=== PATIENT | male | born 1955 | race Caucasian/White ===

== ENCOUNTER 2022-05-16 09:42 | Emergency (ER) | payer MEDICARE, OTHER, SELFPAY ==
--- NOTE | ~2022-05-16 | XR_ITS ---
EXAMINATION: XR chest 2V DATE: 05/16/2022 10:46 INDICATION: Cough. COVID-19 positive. TECHNIQUE: Frontal and lateral views of the chest were obtained. COMPARISON: None. FINDINGS: There is no pneumonia, pleural effusion, or pneumothorax. The heart size is normal. There a re prominent paracardial fat pads. There is an old healed right rib fracture. IMPRESSION: 1. No acute cardiopulmonary disease. Reviewed, dictated and finalized at location A. [employer]
[2022-05-16 09:48] VITALS: BP 180/82; PULSE 77; RESP 16; TEMP 36.2; O2SAT 100
[2022-05-16 12:07] VITALS: BP 143/74; PULSE 71; TEMP 36.7; O2SAT 99
[2022-05-16] MEDS: IBUPROFEN 400 MG TABLET 800 MG PO (12:25)
[2022-05-16] MEDS: ACETAMINOPHEN 500 MG TABLET 1000 MG PO (12:26)
--- NOTE | 2022-05-16 12:45 | ECG_ITS ---
Measurements Intervals [place] Rate: 68 P: 67 CT: 161 QRS: -28 QRSD: 97 T: 38 QT: 409 QTc: 436 Interpretive Statements SINUS RHYTHM BORDERLINE R WAVE PROGRESSION, ANTERIOR LEADS BASELINE ARTIFACT- I, II, III, AVR, AVL, AVF, V3-V6 BORDERLINE ECG NO PREVIOUS ECG AVAILABLE FOR COMPARISON Electronically Signed On 05-16-2022 15:24:45 [employer] by Khris Dominguez D.O.
--- NOTE | 2022-05-16 12:45 | ED.GENADULT ---
HPI - General Adult General Chief complaint: Upper Respiratory Infection Stated complaint: SOB Time Seen by Provider: 05/16/22 11:45 History of Present Illness HPI narrative: this is a 66-year-old male presenting to ED with a chief complaint of viral illness. Patient started having symptoms on Tuesday. On to go home COVID test which was positive. He has been having some nausea and diarrhea and generalized fatigue. He also had an episode of palpitations when he woke this morning. After he had palpitations he checked his blood pressure is elevated which caused him significant anxiety. He tried to call his doctor's office but they were unavailable so he came to the emergency room for evaluation. Patient does not have shortness of breath, chest pain or lower extremity edema. He is vaccinated against COVID and flu. Denies sick contacts at home Related Data Allergies Allergy/AdvReac Type Severity Reaction Status Date / Time povidone-iodine AdvReac Rash Verified 05/16/22 12:26 [From Betadine] Review of Systems Review of Systems: All systems reviewed & are unremarkable except as noted in HPI and below PMFSH Past Medical History Medical History COPD (chronic obstructive pulmonary disease) CVA (cerebral vascular accident) Diabetes Hypertension Social History Social History Social History: denies smoking tobacco drugs Course Vital Signs Vital signs: Vital Signs Temperature 97.1 F L 05/16/22 09:48 Pulse Rate 77 05/16/22 09:48 Respiratory Rate 16 05/16/22 09:48 Blood Pressure 180/82 H 05/16/22 09:48 Pulse Oximetry 100 05/16/22 09:48 Temperature 98.0 F 05/16/22 12:07 Pulse Rate 71 05/16/22 12:07 Respiratory Rate 16 05/16/22 09:48 Blood Pressure 143/74 H 05/16/22 12:07 Pulse Oximetry 99 05/16/22 12:07 Medical Decision Making [facility] Narrative Medical decision making narrative: This is a 66-year-old male presenting ED with a viral illness. He is positive for COVID. Patient has stable vital signs and is well appearing. after speaking with the patient about his anxiety and elevated blood pressure he agrees that no significant workup is needed. Patient is likely dehydrated from his diarrhea. I offered to get lab work and give IV fluids with the patient declined. Patient given Motrin Tylenol for symptoms. Chest x-ray showed no acute cardiopulmonary process. EKG interpretation: Rhythm [sinus], Rate 68, [place] -[normal], SC -[normal], QRS [narrow], QTC [normal], T waves -[negative for concerning inversions], ST Segments - [Negative for concerning elevations] Final interpretations: [Normal Sinus Rhythm] I discussed patient's results. He is still feeling well. VSS. He will be discharged home to a recover on his own. He can follow up with his primary care physician. Vital Signs Vital Signs: Vital Signs Temperature 97.1 F L 05/16/22 09:48 Pulse Rate 77 05/16/22 09:48 Respiratory Rate 16 05/16/22 09:48 Blood Pressure 180/82 H 05/16/22 09:48 Pulse Oximetry 100 05/16/22 09:48 Temperature 98.0 F 05/16/22 12:07 Pulse Rate 71 05/16/22 12:07 Respiratory Rate 16 05/16/22 09:48 Blood Pressure 143/74 H 05/16/22 12:07 Pulse Oximetry 99 05/16/22 12:07 Discharge Plan Discharge Clinical Impression: COVID Patient Disposition: Home, Self-Care Condition: Stable Instructions: Antibiotic Form, Viral Syndrome (ED) Additional Instructions: you have COVID-19 infection. Please take Motrin and Tylenol for fever and body aches. Please make sure you are drinking plenty of fluids. Return emergency department if he develops chest pain or shortness of breath. Otherwise please follow-up with your primary care physician. You should self isolate for 5 days from symptom onset and until your symptom free. Follow-up/Referrals: [facility]
[2022-05-16 14:06] LABS: Glucose Point of Care 172 mg/dl (65-105)
[2022-05-16 14:33] VITALS: BP 144/86; PULSE 86; RESP 16; O2SAT 98
== END 2022-05-16 14:45 | disposition home or self-care (01) ==
LOC: ANHED 14:40
PROVIDERS: Emergency Provider Emergency Medicine
DX: U07.1 COVID-19 (principal); J44.9 Chronic obstructive pulmonary disease, unspecified; E11.9 Type 2 diabetes mellitus without complications; I10 Essential (primary) hypertension; Z86.73 Personal history of transient ischemic attack (TIA), and cerebral infarction without residual deficits; R94.31 Abnormal electrocardiogram [ECG] [EKG]
CPT/HCPCS: 71046; 82948; 93005; 99283; A9270

== ENCOUNTER 2022-11-12 11:50 | Emergency (ER) | payer MEDICARE, OTHER, SELFPAY ==
[2022-11-12 11:54] VITALS: BP 151/72; PULSE 82; RESP 22; TEMP 36.1; O2SAT 98
[2022-11-12 12:33] LABS: Appearance Urine Clear (Clear); Bacteria Urine None Seen /hpf; Bilirubin Urine Negative (Negative); Blood Urine Negative (Negative); Color Urine Yellow (Yellow); Glucose Urine UA 3+ mg/dL (Negative); Ketones Urine Negative (Negative); Leukocyte Esterase Ur Negative LEU/UL (Negative); Nitrate Urine Negative (Negative); Non Pathogenic Casts 0-2; Protein Urine Trace mg/dL (Negative); RBC Urine 0-2 /hpf (0-2); Specific Grav Ur 1.025 (1.001-1.035); Squamous Epithelial Cell Urine None seen /hpf (Few); WBC Urine 0-5 /hpf; pH Urine 5.5 (5.0-9.0)
[2022-11-12 12:38] LABS: Add Urine Microscopic? YES
--- NOTE | 2022-11-12 13:15 | ED.MALEGU ---
HPI - Male Genitourinary General Chief complaint: Urogenital-Male Stated complaint: decreased urine OP since Time Seen by Provider: 11/12/22 12:02 History of Present Illness HPI Narrative: Patient is a 67-year-old male presenting with difficulty urinating. Patient states that he has had prostate problems in the past. He follows with urology at [facility]. States that he has been doing well until the last several days when he noticed that it was more difficult for him to urinate. States that he is able to urinate, just requires a lot of pushing. States that he is concerned about a UTI as he had one in 2019 and developed sepsis. He denies fevers, chest pain, shortness of breath, abdominal pain, vomiting, diarrhea, dysuria, hematuria, leg swelling. Related Data Allergies Allergy/AdvReac Type Severity Reaction Status Date / Time povidone-iodine AdvReac Rash Verified 11/12/22 12:21 [From Betadine] Review of Systems Review of Systems: All systems reviewed & are unremarkable except as noted in HPI and below PMFSH Past Medical History Medical History COPD (chronic obstructive pulmonary disease) CVA (cerebral vascular accident) Diabetes Hypertension Social History Social History Social History: denies smoking tobacco drugs Exam Narrative: GENERAL: Well-appearing, well-nourished, and in no acute distress. HEAD: Normocephalic, atraumatic. EYES: PERRLA and EOMI. ENT: Nares clear, no rhinorrhea or epistaxis. Mucous membranes moist. NECK: Supple. CHEST: No respiratory distress. HEART: Regular rate and rhythm ABDOMEN: Soft, nontender, nondistended EXTREMITIES: Normal range of motion. No edema. SKIN: Warm, dry, no rash. NEURO: No focal deficits. Alert and oriented x3. PSYCH: Normal mood and affect. Course Vital Signs Vital signs: Vital Signs Temperature 97.0 F L 11/12/22 11:54 Pulse Rate 82 11/12/22 11:54 Respiratory Rate 22 H 11/12/22 11:54 Blood Pressure 151/72 H 11/12/22 11:54 Pulse Oximetry 98 11/12/22 11:54 Oxygen Delivery Room Air 11/12/22 11:54 Temperature 97.0 F L 11/12/22 11:54 Pulse Rate 82 11/12/22 11:54 Respiratory Rate 22 H 11/12/22 11:54 Blood Pressure 151/72 H 11/12/22 11:54 Pulse Oximetry 98 11/12/22 11:54 Oxygen Delivery Room Air 11/12/22 11:54 MDM - Male Genitourinary MDM Narrative Medical decision making narrative: Patient is a 67-year-old male presenting with urinary difficulties. Patient is hypertensive, his vitals are within normal limits. Exam is unremarkable. UA is not infected. Plan for basic labs and likely discharge. Patient states that he is already left a message for his urologist. Blood work with mild leukocytosis. Renal function is normal. Bladder scan reveals minimal postvoid residual of about 25 cc. Discussed the reassuring work-up with the patient. Advised that he follow-up closely with his urologist as well as his PCP. Appropriate return precautions given. Patient and his voiced understanding and are agreeable with plan. Discharged in stable condition. Differential Diagnosis Differential diagnosis: Likely urinary tract infection, urethritis and acute retention of urine Medical Records Attestation: I reviewed the patient's medical records. Lab Data Attestation: I reviewed the patient's lab results. 11/12/22 13:23 11/12/22 13:23 Labs: Lab Results 11/12/22 11/12/22 Range/Units 12:21 13:23 WBC 11.6 H (4.5-10.0) K/mm3 RBC 5.39 (4.6-6.20) M/mm3 Hgb 14.2 (14.0-18.0) g/dL Hct 46.3 (42.0-52.0) % MCV 85.9 (80-100) fl MCH 26.3 (26-34) pg MCHC 30.7 L (32-36) g/dl RDW 14.8 H (11.5-14.5) % Plt Count 307 (150-375) k/mm3 MPV 10.2 (7.4-10.4) fl Immature Gran % (Auto) 1.1 H (0-0.5) % Neut % (Auto) 74.9 H (45.5-73.1) % Lymph % (
[2022-11-12 13:29] LABS: Basophils Absolute Auto 0.1 K/mm3 (0.0-0.1); Basophils Percent Auto 0.7 % (0.2-1.2); Eosinophils Absolute Auto 0.1 K/mm3 (0-0.3); Eosinophils Percent Auto 0.8 % (0-4.4); Hematocrit 46.3 % (42.0-52.0); Hemoglobin 14.2 g/dL (14.0-18.0); Immature Granulocyte Absolute 0.13 K/mm3 (0.00-0.031); Immature Granulocyte Percent A 1.1 % (0-0.5); Lymphocytes Absolute Auto 1.75 K/mm3 (0.9-3.2); Lymphocytes Percent Auto 15.1 % (18.3-44.2); Mean Corpuscular HGB Conc 30.7 g/dl (32-36); Mean Corpuscular Hemoglobin 26.3 pg (26-34); Mean Corpuscular Volume 85.9 fl (80-100); Mean Platelet Volume 10.2 fl (7.4-10.4); Monocytes Absolute Auto 0.9 K/mm3 (0.1-0.6); Monocytes Percent Auto 7.4 % (2.6-8.5); Neutrophils Absolute Auto 8.7 K/mm3 (1.3-6.7); Neutrophils Percent Auto 74.9 % (45.5-73.1); Platelet Count Result 307 k/mm3 (150-375); Red Blood Count 5.39 M/mm3 (4.6-6.20); Red Cell Distribution Width 14.8 % (11.5-14.5); White Blood Count 11.6 K/mm3 (4.5-10.0)
[2022-11-12 13:38] LABS: Alanine Aminotransferase 34 U/L (6-50); Albumin Level 4.6 g/dL (3.5-5.1); Alkaline Phosphatase 47 U/L (38-126); Anion Gap 9 mmol/L (8-16); Aspartate Amino Transferase 35 U/L (17-59); Bilirubin,Total 0.8 mg/dL (0.2-1.3); Blood Urea Nitrogen 21 mg/dL (9-20); Calcium 9.3 mg/dL (8.4-10.2); Carbon Dioxide 29 mmol/L (22-30); Chloride 100 mmol/L (98-107); Estimated CRCL calculation 62 ml/min; Estimated Glomerular Filt Rate > 60; Glucose 137 mg/dL (65-110); Potassium 4.8 mmol/L (3.4-5.0); Sodium 138 mmol/L (137-145)
== END 2022-11-12 15:38 | disposition home or self-care (01) ==
PROVIDERS: Emergency Medicine; Emergency Provider Emergency Medicine
DX: R39.198 Other difficulties with micturition (principal); E11.9 Type 2 diabetes mellitus without complications; I10 Essential (primary) hypertension; J44.9 Chronic obstructive pulmonary disease, unspecified; Z86.73 Personal history of transient ischemic attack (TIA), and cerebral infarction without residual deficits
CPT/HCPCS: 36415; 80053; 81001; 85025; 99283

== ENCOUNTER 2024-12-13 18:41 | Emergency (ER) | payer MEDICARE, OTHER, SELFPAY ==
--- OUTSIDE RECORDS SUMMARY | 2024-12-13 18:43 | XMS_ITS | Encounter Summary ---
Author Organization [facility] Address [address] [place] [address] Care Team Providers Care Footwear Sales Leader Name Role Phone Galindo Valentin MD Primary Care Provider [phone] Reason for Visit * Reason Onset Date Comments Abscess Of Left Foot 09/14/2019 Left messag e on Voicemail at Dr. Au's office Encounter Details Date Type Department Care Team ([facility] Contact Info) Description 09/14/2019 Telephone [facility] [address] [place] [address] [place] [address] [facility] [address] [place] [address] Abscess Of Left Foot (Left message on Voicemail at Dr. Au's office) Social History Tobacco Use Types Packs/Day Years Used Date Smoking Tobacco: Never Smokeless Tobacco: Never Alcohol Use Standard Drinks/Week Comments Never 0 (1 standard drink = 0.6 oz pur e alcohol) Sex and Gender Information Value Date Recorded Sex Assigned at Not on file Legal Sex Male 2:49 PM CDT Gender Identity Not on file Sexual Orientation Not on file COVID-19 Exposure Response Date Recorded In the last month, have you been in contact with someone who was confirmed or suspected to have Coronavirus / COVID-19? No / Unsure 09/13/2019 9:59 AM CDT documented as of this encounter Plan of Treatment Upcoming Encounters Date Type Department Care Team ([facility] Contact Info) Description 11/29/2025 10:30 AM CDT Office Visit [facility] Heart [facility] - [address] [facility] [address] [facility] [address] [place] [address] Letty Macario APRN-INTERVENTIONAL PHYSIATRIST [address] [facility] [address] [place] [address] documented as of this encounter Visit Diagnoses Not on filedocumented in this encounter Care Teams Footwear Sales Leader Relationship Specialty Start Date End Date Galindo Valentin MD [address] [facility] [address] [place] [id number] PCP - General Internal Medicine 08/08/19 documented as of this encounter
--- OUTSIDE RECORDS SUMMARY | 2024-12-13 18:43 | XMS_ITS | Encounter Summary ---
Author Organization [facility] Address [address] [place] [address] Care Team Providers Care Fleet Sales Associate Name Role Phone Galindo Valentin MD Primary Care Provider [phone] Reason for Visit * Reason Onset Date Comments Abscess of Left Foot 09/14/2019 Spoke with Breanna at Dr. Silva's office Encounter Details Date Type Department Care Team ([facility] Contact Info) Description 09/14/2019 Telephone [facility] [address] [place] [address] [place] [address] [address] Abscess of Left Foot (Spoke with Breanna at Dr. Silva's office) Social History Tobacco Use Types Packs/Day [...] Upcoming Encounters Date Type Department Care Team ([facility] Contact Info) Description 11/29/2025 10:30 AM CDT Office Visit [facility] Heart and V[facility] - [address] [facility] [address] [address] [facility] [address] [place] [address] Letty Macario, MARISELA-BRIDGE MANAGER [address] [facility] [address] [place] [address] documented as of this encounter Visit Diagnoses Not on filedocumented in this encounter Care Teams Fleet Sales Associate Relationship Specialty Start Date End Date Galindo Valentin MD [address] [facility] [address] [place] [phone] PCP - General Internal Medicine 08/08/19 documented as of this encounter
--- OUTSIDE RECORDS SUMMARY | 2024-12-13 18:43 | XMS_ITS | Clinical Summary ---
Author Organization [facility] Address [address] [place] [address] Phone Care Team Providers Care Wind Instrument Repairer Name Role Phone Galindo Valentin MD Primary Care Provider [phone] Allergies Active Allergy Reactions Criticality Noted Date Comments Povidone-Iodine Rash Low 09/13/2019 Thiethylperazine Maleate Anaphylaxis High 10/04/2019 Medications acetaminophen (TYLENOL) 325 mg tablet Take 650 mg by mouth every 4 hours as needed. Active pantoprazole (PROTONIX) 40 mg Tablet, Delayed Release (E.C.) Take 40 mg by mouth daily. Active spironolactone (ALDACTONE) 100 mg tablet Take 100 mg by mouth daily. Active glyBURIDE (DIABETA) 2.5 mg tablet Take 5 mg by mouth 2 times daily. Active lisinopriL 10 mg tablet (PRINIVIL) Take 10 mg by mouth daily. Active metoprolol succinate (TOPROL XL) 100 mg Extended Release 24 hour tablet Take 1 Tablet (100 mg) by mouth every 12 hours. 30 Tablet 08/14/19 20 3:22 PM CDT 020 Active warfarin (COUMADIN) 6 mg tablet Take 6 mg by mouth daily. Active hydroCHLOROthiazide 25 mg tablet Take 25 mg by mouth daily. Active insulin glargine (LANTUS) 100 unit/mL pen syringe Inject 25 Units by subcutaneous injection 2 times daily. 15 mL 2 09/19/19 20 7:13 PM CDT 020 Active Additional Information Patient taking differently: 68 UnitssubCUTDAILY WITH BREAKFAST, Reported on 11/27/2024 insulin aspart U-100 (NovoLOG) 100 unit/mL vial Dose per sliding scale Active atorvastatin (LIPITOR) 10 mg tablet Take 10 mg by mouth daily. Active albuterol sulfate HFA 90 mcg/actuation aerosol inhaler Take 2 Puffs by inhalation every 6 hours as needed. Active fenofibrate nanocrystallized (TRICOR) 145 mg tablet Take 1 Tablet by mouth daily. 023 Active Active Problems Patient Care Coordination No te Formatting of this note migh t be different from the original. Manager Wholesale-Dr You [facility] [address] [place] [address] Problem Noted Date Diagnosed Date Abnormal cardiovascular stress test 05/26/2022 Overview (05/26/2022): Added automatically from request for surgery [id number] Reactive thrombocytosis 09/14/2019 Acute hematogenous osteomyelitis 09/13/2019 Abscess of left foot 09/13/2019 Chronic indwelling [place] catheter 09/13/2019 Paroxysmal atrial fibrillati on with rapid ventricular response 08/09/2019 History of stroke 08/09/2019 UTI (urinary tract infection) 08/09/2019 Leukocytosis (leucocytosis) 08/09/2019 Hyponatremia 08/09/2019 Type 2 diabetes mellitus with unspecified compli cations 08/08/2019 Type 2 diabetes mellitus without complications 0 08/08/2019 Hemiparesis affecting left s shaila as late effect of cerebrovascular accident (CVA) COPD (chronic obstructive pulmonary disease) Resolved Problems Problem Noted Date Diagnosed Date Resolved Date Longstanding persistent atrial fibrillation 09/14/2019 04/27/2022 Encounters Date Type Department Care Team Description 12/04/2024 External Device Data STL ABSTRACTION Provider, Abstract 11/27/2024 11:15 AM CDT Office Visit [facility] Heart and Vascular - [address] [facility] [address] [place] [address] Froylan You MD Paroxysmal atrial fibrillation (CMS/HCC) (Primary Dx) 10/30/2024 External Device Data STL ABSTRACTION Provider, Abstract 10/03/2024 External Device Data STL ABSTRACTION Provider, Abstract 10/02/2024 External Device Data STL ABSTRACTION Provider, Abstract from Last 3 Months Immunizations Immunization Administration Dates Next Due (SPIKEVAX) (12 YRS UP PRIMAR Y SERIES) COVID-19 VACCINE - MRNA-1273(PF) 100 MCG/0.5 ML IM SUSP 08/04/2020,07/03/2020 Influenza Seasonal Unspecified Formulation IM Family History Medical History Relation Name Comments Diabetes Father Other Father Diabetes Mother Diabetes Sister Relation Name Status Comments Father Mother Alive Sister Alive Social History Tobacco Use Types Packs/Day Years Used Date Smoking Tobacco: Never Smokeless Tobacco: Never Tobacco Cessation:Counseling Given: Not Answered Alcohol Use Standard Drinks/Week Comments Never 0 (1 standard drink = 0.6 oz pur e alcohol) Sex and Gender Information Value Date Recorded Sex Assigned at Not on file Legal Sex Male 2:49 PM CDT Gender Identity Not on file Sexual Orientation Not on file Last Filed Vital Signs Vital Sign Reading Time Taken Comments Blood Pressure 134/64 11/27/2024 11:14 AM CDT Pulse 74 11/27/2024 11:14 AM CDT Temperature 36.4 C (97.6 F) 06/03/2022 9:13 AM EDUCATIONAL AUDIOLOGIST Respiratory Rate 16 06/03/2022 1:30 PM EDUCATIONAL AUDIOLOGIST Oxygen Saturation 97% 01/21/2023 1:42 PM CDT Inhaled Oxygen Concentration - - Weight 94.3 kg (208 lb) 11/27/2024 11:14 AM CDT Height 170.2 cm (5' 7) 11/27/2024 11:14 AM CDT Body Mass Index 32.58 11/27/2024 11:14 AM CDT Plan of Treatment Upcoming Encounters Date Type Department Care Team (Late st Contact Info) Description 11/29/2025 10:30 AM CDT Office Visit [facility] Heart and Vascular - [address] [facility] [address] [place] [address] Letty Macario APRN-RAMONITA [address] [place] [address] Health Maintenance Due Date Last Done Comments DIABETES ANNUAL FOOT EXAM 07/15/1971 DIABETES ANNUAL RETINAL EXAM 07/15/1971 DIABETES MICROALBUMIN ANNUAL SCREEN 07/15/1971 DTAP/TDAP/TD VACCINES (1 - Tdap) 1972 COLORECTAL SCREENING 1998 Colorectal Cancer Screening 1998 FIT-DNA Q 3 years 1998 FIT/FOBT Q 1 year 1998 Flex Sig/CT Colonography Q 5 years 1998 ZOSTER VACCINE (1 of 2) 07/15/2003 RSV VACCINE (60+ or ) (1 - Risk 60-74 years 1-dose series) 2013 LDL CHOLESTEROL ANNUAL 06/08/2023 06/08/2022, 2019 COVID-19 Vaccine (3 - 2023-2 5 season) 2024 08/04/2020, 07/03/2020 INFLUENZA VACCINE (#1) 2024 , 02/23/2021, 02/19/2020, Additional history exists DIABETES HBA1C Q 6 MONTHS 01/09/20252024, 03/05/2024, 11/09/2023, Additional history exists PNEUMOCOCCAL VACCINE 50+ YEARS Completed 02/19/2020 , 12/12/2018 Procedures Procedure Name Priority Date/Time Associated Diagnosis Comments ID ECG ROUTINE ECG W/LEAST 12 LDS W/I&R Routine 11/27/2024 11:15 AM CDT Paroxysmal atrial fibrillation (CMS/HCC) LIPID PANEL Routine 06/08/2022 HEMOGLOBIN A1C Routine 08/09/2019 6:30 AM CDT from Last 3 Months or Most Recently Relevant to Health Maintenance Results * ID ECG ROUTINE ECG W/LEAST 12 LDS W/I&R (11/27/2024 11:15 AM CDT) Narrative [facility] [id number] [address] - 11/27/2024 11:15 AM CDT Froylan You MD 11/27/2024 11:41 AM EKG Date/Time: 11/27/2024 11:15 AM Performed by: Froylan You MD Authorized by: Froylan You MD Rhythm: sinus rhythm Clinical impression: normal ECG Procedure Note Froylan You MD - 11/27/2024 11:36 AM CDT Return Office Visit 11:36 AM 11/27/2024 Juancarlos Antunez 1955 [id number] Primary Care Physician: Galindo Valentin MD Chief Complaint Patient presents with YEARLY F/U AFIB CARDIOVASCULAR PROBLEM LIST: 1. Paroxysmal atrial fibrillation with rapid ventricular response HPI: Juancarlos Antunez is a 69 y.o. male is here today for follow-up. hE ISDOING well. Past Medical History: Diagnosis Date Arthritis Asthma Atrial fibrillation (CMS/HCC) COPD (chronic obstructive pulmonary disease) (CMS/HCC) Diabetes mellitus (CMS/HCC) GERD (gastroesophageal reflux disease) Headache HTN (hypertension) Hyperlipidemia Social History Socioeconomic History Marital status: Spouse name: Not on file Number of children: Not on file Years of education: Not on file Highest education level: Not on file Occupational History Not on file Tobacco Use Smoking status: Never Smokeless tobacco: Never Vaping Use Vaping status: Never Used Substance and Sexual Activity Alcohol use: Never Drug use: Never Sexual activity: Not on file Other Topics Concern Not on file Social History Narrative Not on file Social Drivers of Health Food Insecurity: Not on file Transportation Needs: Not on file Feeling Safe: Not on file Housing Stability: Not on file ROS Allergies Allergen Reactions Thiethylperazine Maleate Anaphylaxis Povidone-Iodine Rash Current Outpatient Medications Medication Sig Dispense Refill albuterol sulfate HFA 90 mcg/actuation aerosol inhaler Take 2 Puffs byinhalation every 6 hours as needed. fenofibrate nanocrystallized (TRICOR) 145 mg tablet Take 1 Tablet bymouth daily. insulin aspart U-100 (NovoLOG) 100 unit/mL vial Dose per sliding scale atorvastatin (LIPITOR) 10 mg tablet Take 10 mg by mouth daily. insulin glargine (LANTUS) 100 unit/mL pen syringe Inject 25 Units bysubcutaneous injection 2 times daily. (Patient taking differently: [id number] Units by subcutaneous injection daily with breakfast.) 15 mL 2 warfarin (COUMADIN) 6 mg tablet Take 6 mg by mouth daily. hydroCHLOROthiazide 25 mg tablet Take 25 mg by mouth daily. metoprolol succinate (TOPROL XL) 100 mg Extended Release 24 hour tabletTake 1 Tablet (100 mg) by mouth every 12 hours. 30 Tablet 0 acetaminophen (TYLENOL) 325 mg tablet Take 650 mg by mouth every 4 hoursas needed. pantoprazole (PROTONIX) 40 mg Tablet, Delayed Release (E.C.) Take 40 mgby mouth daily. spironolactone (ALDACTONE) 100 mg tablet Take 100 mg by mouth daily. glyBURIDE (DIABETA) 2.5 mg tablet Take 5 mg by mouth 2 times daily. lisinopriL 10 mg tablet (PRINIVIL) Take 10 mg by mouth daily. No current facility-administered medications for this visit. Physical Exam: Vitals: 11/27/24 1114 BP: 134/64 Pulse: 74 Weight: 94.3 kg (208 lb) Height: 5' 7 (1.702 m) General appearance: Well appearing, well developed in no acute distress. Neck: Supple, no jugular venous distension at 45 degrees. Lungs: clear to auscultation bilaterally, normal respiratory effort Heart: normal rate, regular rhythm, normal S1, S2, no murmurs, rubs,clicks or gallops Abdomen: Soft, non-tender. Bowel sounds normal. No masses, noorganomegaly. Extremities: extremities normal, atraumatic, no cyanosis or edema, intactdistal pulses, moves all extremities equally Pulses: 2+ and symmetric Skin: Skin color, texture, turgor normal. No rashes or lesions Neurologic: Grossly normal Lab Results Component Value Date/Time CHOLTOT 62 08/09/2019 12:06 AM HDL 28 (L) 08/09/2019 12:06 AM LDLCALC 20 08/09/2019 12:06 AM TRIGLYCERIDE 71 08/09/2019 12:06 AM Lab Results Component Value Date/Time ALT 7 09/14/2019 11:08 PM AST 7 09/14/2019 11:08 PM ALKPHOS 59 09/14/2019 11:08 PM Lab Results Component Value Date/Time BUN 21 05/27/2022 12:35 PM CREAT 1.19 05/27/2022 12:35 PM K 4.6 05/27/2022 12:35 PM CARDIOVASCULAR PROCEDURES: ECG EKG Date/Time: 11/27/2024 11:15 AM Performed by: Froylan You MD Authorized by: Froylan You MD Rhythm: sinus rhythm Clinical impression: normal ECG ECHOCARDIOGRAM: No results found for this or any previous visit. IMPRESSION/PLAN: Afib, paroxysmal - no recurrentce. Continue ac with warfarin. Monitorclinically for recurrence,. Froylan You MD [facility] Heart and Vascular Froylan You MD ECG ORDERABLES Edite d Result - Final [facility] [address] [facility] CLIA# [id number] [address] [address] * LIPID PANEL (06/08/2022) Blood Abstract Provider CHEMISTRY ORDERABLES Edited Re sult - Final * (ABNORMAL) HEMOGLOBIN A1C (08/09/2019 6:30 AM CDT) HEMOGLOBIN A1C 10.6(H) <=5.6 % 08/09/2019 7:09 AM CDT [facility] EST. AVG GLUCOSE, A1C 258 mg/dL 08/09/2019 7:09 AM CDT [facility] Blood Venipuncture / Unknown 08/09/2019 6:30 AM CDT 08/09/2019 6:54 AM CDT Narrative [facility] - 08/09/2019 7:09 AM CDT HGB A1C INTERPRETATION NORMAL: <5.7% PRE-DIABETES: 5.7 - 6.4% DIABETES: 6.5% OR GREATER April Gandara MD CHEMISTRY ORDERABLES Final Resul t [facility] CLIA# [id number] [place] [address] from Last 3 Months or Most Recently Relevant to Health Maintenance Insurance MEDICARE PART A AND B [facility] RX DxTerity Medicare Part D RX [employer] (INTERNAL) [facility] Plans Advance Directives For more information, please contact: [phone] * Full Code (Latest Code Status on File) Date Activated Date Inactivated Comments 09/15/2019 10:12 AM 09/19/2019 9:51 PM * Full Code Date Activated Date Inactivated Comments 09/15/2019 7:27 AM 09/15/2019 10:12 AM * Full Code Date Activated Date Inactivated Comments 09/13/2019 2:36 PM 09/15/2019 7:27 AM * Full Code Date Activated Date Inactivated Comments 08/08/2019 10:37 PM 08/14/2019 6:44 PM * Full Code Date Activated Date Inactivated Comments 08/08/2019 8:30 PM 08/08/2019 10:37 PM Care Teams Wind Instrument Repairer Relationship Specialty Start Date End Date Galindo Valentin MD [address] [phone] PCP - General Internal Medicine 08/08/19
--- OUTSIDE RECORDS SUMMARY | 2024-12-13 18:43 | XMS_ITS | Encounter Summary ---
Author Organization [facility] Address [address] [place] [address] Care Team Providers Care It Administrative Assistant Name Role Phone Galindo Valentin MD Primary Care Provider [phone] Encounter Details Date Type Department Care Team (Late Contact Info) Description 09/14/2019 Telephone [facility] [address] [place] [address] [place] [address] [address] Social History Tobacco Use Types Packs/Day Years [...] Description 11/29/2025 10:30 AM CDT Office Visit [facility] Heart and Vascular - [address] [facility] 300 [address] [facility] [address] [place] [address] Letty Macario, VIDEO PRODUCTION ASSISTANT-HEALTH IT SPECIALIST [address] [facility] [address] [place] [address] documented as of this encounter Visit Diagnoses Not on filedocumented in this encounter Care Teams It Administrative Assistant Relationship Specialty Start Date End Date Galindo Valentin MD [address] [facility] [address] [place] [phone] PCP - General Internal Medicine 08/08/19 documented as of this encounter
--- OUTSIDE RECORDS SUMMARY | 2024-12-13 18:43 | XMS_ITS | Continuity of Care Document ---
Author Organization [facility] Address [address] [place] [address] [address] [place] [address] Phone Care Team Providers Care Mantel Craftsman Name Role Phone [facility] Unavailable Unavail able Trudi Umana Unavailable Unavailable Procedures Procedure Date Vision Svcs Frames Purchases Progressive Lens, Polycarb Tax - Medical Anti-reflective Coating Eye Exam & Treatment Refraction Advance Directives Directive Yes / No Effective Date File Name No Information Encounters Encounter Description Practice Location Reason(s) For Visit Diagnoses Date Provider Providers Copied on Encounter [facility], [address] [place] [address] [address], [place], [place], [id number], [place] tel:[phone] [facility] No Information 8 [facility] . [address] [facility], [facility] [address], [place], [id number], [place]. tel:[phone] Referring Provider: Renata Monge, [facility] [address], [place], [address]. tel:[phone] g Provider: Trudi Umana, [address] [facility], [place], [address]. tel:[phone] [facility], [address], [place], [place], [id number], [place] tel:[phone] [facility] No Information 8 May Yanez. [facility] , [address], [place], [address], [place]. tel:[phone] Family History Family Member Type Diagnosis Age At Onset No Information Payers Payer name Insurance type Covered libertarian ID Authoriza tion(s) No Information Social History Type Description Quantity Date Captured Comments Sex Male Smoking Status No Information Chief Complaint And Reason For Visit No Information Reason For Referral Reason For Referral No Information History Of Present Illness Encounter Date Complaint History Of Prese nt Illness No Information Functional Status Date Functional Assessmen t No Information Instructions Date Instruction Additional Infor mation No Information Assessments Type Assessment Date No Information Patient Care Teams Name Effective Dates (start - stop) Status Members No Information
--- OUTSIDE RECORDS SUMMARY | 2024-12-13 18:43 | XMS_ITS | Encounter Summary ---
Author Organization [facility] Address [address] [place] [address] Care Team Providers Care Electric Motor Controls Assembler Name Role Phone Galindo Valentin MD Primary Care Provider [phone] Reason for Visit * Reason Onset Date Comments afib rvr 08/09/2019 Sent page in Spo k to [facility] for [employer] exchange Encounter Details Date Type Department Care Team (Late Contact Info) Description 08/09/2019 Telephone [facility] [address] [place] [address] [place] [address] [address] [facility] [address] [place] [address] afib rvr (Sent page in Spok to [facility] for [employer]) Social History Tobacco Use Types Packs/Day Years [...] have Coronavirus / COVID-19? No / Unsure 08/08/2019 10:06 PM CDT documented as of this encounter Plan of Treatment Upcoming Encounters Date Type Department Care Team (Late st Contact Info) Description 11/29/2025 10:30 AM CDT Office Visit [facility] Heart and Vascular - [address] [facility] 300 [address] [facility] [address] [place] [address] Letty Macario, FIELD MARKETING ASSOCIATE-IT OPERATIONS SPECIALIST [address] [facility] [address] [place] [address] documented as of this encounter Visit Diagnoses Not on filedocumented in this encounter Care Teams Electric Motor Controls Assembler Relationship Specialty Start Date End Date Galindo Valentin MD [address] [facility] 4 [place] [phone] PCP - General Internal Medicine 08/08/19 documented as of this encounter
--- OUTSIDE RECORDS SUMMARY | 2024-12-13 18:43 | XMS_ITS | Clinical Summary ---
Author Organization [facility] Address [address] [place] [address] Care Team Providers Care Manufacturing Worker Name Role Phone Galindo Valentin MD Primary Care Provider Allergies Active Allergy Reactions Criticality Noted Date Comments Povidone-Iodine Hives,Rash Medium 09/13/2019 Thiethylperazine Maleate Anaphylaxis High 10/04/2019 Medications acetaminophen (TYLENOL) 325 mg tablet Take 650 mg by mouth every 4 (four) hours as needed for pain Active metFORMIN (GLUCOPHAGE) 500 mg tabletIndications:ty pe 2 diabetes mellitus Take 1,000 mg by mouth 2 (two) times a day with meals 0 Active insulin glargine (LANTUS,BASAGLAR) 100 unit/mL (3 mL) insulin penIndications:type 2 diabetes mellitus Inject 68 Units under the skin every morning 0 Active insulin lispro (HumaLOG) 100 unit/mL injectionIndications :type 2 diabetes mellitus,sliding scale for over 150 Inject 2-10 Units under the skin 3 (three) times a day with meals Active glyBURIDE (DIABETA) 2.5 mg tabletIndications:ty pe 2 diabetes mellitus Take 5 mg by mouth 2 (two) times a day Active hydroCHLOROthiazide (HYDRODIURIL) 50 mg tabletIndications:hy pertension Take 50 mg by mouth 2 (two) times a day 0 Active metoprolol XL (TOPROL-XL) 100 mg 24 hr tabletIndications:At rial Arrhythmia,hypertens ion Take 100 mg by mouth 2 (two) times a day [address] (PROTONIX) 40 mg EC tabletIndications:Tr eatment of Non-Bleeding Gastric Disorder Take 40 mg by mouth every morning 0 Active fenofibrate nanocrystallized (TRICOR) 145 mg tabletIndications:hy perlipidemia Take 145 mg by mouth every morning 0 Active lisinopriL (PRINIVIL,ZESTRIL) 2.5 mg tabletIndications:hy pertension Take 2.5 mg by mouth every morning 0 Active spironolactone (ALDACTONE) 100 mg tabletIndications:hy pertension Take 100 mg by mouth every morning Active warfarin (COUMADIN) 5 mg tabletIndications:[facility] 2019 stroke Take 1 tablet (5 mg total) by mouth daily Restart tonight 12/04/2019 1 Active Active Problems Problem Noted Date Diagnosed Date Preoperative testing 10/01/2020 Benign prostatic hyperplasia with lower urinary tract symptoms 09/03/2020 Overview (09/03/2020): Added automatically from request for surgery [id number] Urinary retention 11/07/2019 Overview (11/07/2019): Added automatically from request for surgery [id number] Retention of urine 11/07/2019 Overview (11/07/2019): Added automatically from request for surgery [id number] Encounters Date Type Department Care Team Description 10/29/2024 2:20 PM CDT Office Visit [facility] Urology [address] [facility] Medical Office Building [address] [place] [address] Carlo Solano, MADHU Benign prostatic hyperplasia with incomplete bladder emptying (Primary Dx); Incomplete bladder emptying from Last 3 Months Surgical History Surgery Date Site/Laterality Comments FOOT SURGERY LIPOMA RESECTION OTHER SURGICAL HISTORY 11/19/2019 urinary interstim for retention- [facility] Medical History Medical History Date Comments Diabetes mellitus (HCC) Hypertension COPD (chronic obstructive pulmonary disease) (HC C) Arrhythmia a fib Atrial fibrillation (HCC) Stroke (HCC) July 2019 GERD (gastroesophageal reflux disease) Type 2 diabetes mellitus (HCC) Family History Medical History Relation Name Comments Diabetes Father Diabetes Mother Relation Name Status Comments Father Mother Social History Tobacco Use Types Packs/Day Years Used Date Smoking Tobacco: Former Cigarettes 1 10.5 2 008 - 11/06/2017 Smokeless Tobacco: Never Alcohol Use Standard Drinks/Week Comments Not Currently 0 (1 standard drink = 0.6 oz pur e alcohol) AUDIT-C Answer Date Recorded Q1: How often do you have a drink containing alc ohol? Never 10/01/2020 Average Number of Drinks Not on file 021 Frequency of Binge Drinking Not on file 09/13 Personal Safety Answer Date Recorded Have you ever been in or are you currently in a harmful physical or emotional relationship or is someone making you feel afraid or unsafe? Denies 05/13/2024 Sex and Gender Information Value Date Recorded Sex Assigned at Not on file Legal Sex Male 5:37 PM HR REPRESENTATIVE Gender Identity Male 04/21/2022 3:16 PM HR REPRESENTATIVE Sexual Orientation Straight 08/31/2019 2: 14 PM CDT Obstetrics History Last Filed Vital Signs Vital Sign Reading Time Taken Comments Blood Pressure 118/67 05/13/2024 1:00 PM HR REPRESENTATIVE Pulse 65 05/13/2024 1:00 PM HR REPRESENTATIVE Temperature 36.7 C (98.1 F) 05/13/2024 11:28 AM HR REPRESENTATIVE Respiratory Rate 16 05/13/2024 1:00 PM HR REPRESENTATIVE Oxygen Saturation 96% 05/13/2024 1:00 PM HR REPRESENTATIVE Inhaled Oxygen Concentration - - Weight 95.3 kg (210 lb) 05/13/2024 11:28 AM HR REPRESENTATIVE Height 170.2 cm (5' 7) 05/01/2024 5:13 PM HR REPRESENTATIVE Body Mass Index 32.89 05/01/2024 5:13 PM HR REPRESENTATIVE Plan of Treatment Health Maintenance Due Date Last Done Comments Colon Cancer Screening-Colonoscopy 1955 Depression Screening 1955 Hepatitis C Screening 1955 DTaP/Tdap/Td Vaccine (1 - Tdap) 1964 Hepatitis B Screening 07/15/1971 Zoster Vaccine (1 of 2) 07/15/2003 Abdominal Aortic Aneurysm (A AA) Screen 2018 Well Visit 65+ 2018 Fall Risk Assessment 10/03/2021 10/03/2020 Influenza Vaccine (#1) 2025 2, 04/11/2018, 04/29/2017, Additional history exists Pneumococcal vaccine 65+ Completed 02/19/2020, 11/15 Medical Devices Implanted Type Area Five Roll Refiner Batch Mixer Device Identifier Shelf Expiration Date Model / Serial / Lot Medtronic Neuro 3889-28 Interstim 28cm Quadripolar Lead Neurostimulator - [id number] Implanted:Qty: 1 on 11/19/2019 by Ladi Duarte MD at [facility] Neurostimulator N/A: Back Medtronic Inc 05/12/2023 3 889-28 / / [id number] Medtronic Neuro 3058 Interstim Ii 2inx1.7in 4 Electrode Pv Design Engineer Sacral Nerve - [id number] - [id number] Implanted:Qty: 1 on 12/03/2019 by Ladi Duarte MD at [facility] Neurostimulator N/A: Buttocks Medtronic Inc 12/27/2020 3058 / [id number] 12H / Procedures Procedure Name Priority Date/Time Associated Diagnosis Comments MEASURE POST VOID RESIDUAL Routine 10/29/2024 2:17 PM CDT Benign prostatic hyperplasia with incomplete bladder emptying from Last 3 Months Results * Measure post void residual (10/29/2024 2:17 PM CDT) 10/29/2024 2:17 PM CDT Narrative Robel Sanchez CMA - 10/29/2024 2:17 PM CDT Measurement of Post-voiding residual urine and/or bladder capacity by ultrasound, non-imaging. 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
--- OUTSIDE RECORDS SUMMARY | 2024-12-13 18:43 | XMS_ITS | Referral Summary ---
Author Organization [facility] Address [address] [place] [address] Care Team Providers Care Fitness Plan Coordinator Name Role Phone Galindo Valentin MD Primary Care Provider Encounters Date Type Department Care Team Description 10/29/2024 2:20 PM CDT Office Visit [facility] Urology [address] [facility] Medical Office Building [address] [place] [address] Carlo Solano NP Benign prostatic hyperplasia with incomplete bladder emptying (Primary Dx); Incomplete bladder emptying from Last 3 Months Allergies Active Allergy Reactions Criticality Noted Date [...] every morning Active warfarin (COUMADIN) 5 mg tabletIndications:[facility] 2019 stroke Take 1 tablet (5 mg total) by mouth daily Restart tonight 12/04/2019 1 Active Active Problems Problem Noted Date Diagnosed Date Preoperative testing 10/01/2020 Benign prostatic hyperplasia with lower urinary tract symptoms 09/03/2020 Overview (09/03/2020): Added automatically from request for surgery [id number] Urinary retention 11/07/2019 Overview (11/07/2019): Added automatically from request for surgery [id number] Retention of urine 11/07/2019 Overview (11/07/2019): Added automatically from request for surgery [id number] Social History Tobacco Use Types Packs/Day Years [...] on file Legal Sex Male 5:37 PM POSTAL SUPERVISOR Gender Identity Male 04/21/2022 3:16 PM POSTAL SUPERVISOR Sexual Orientation Straight 08/31/2019 2: 14 PM CDT Last Filed Vital Signs Vital Sign Reading Time Taken Comments Blood Pressure 118/67 05/13/2024 1:00 PM POSTAL SUPERVISOR Pulse 65 05/13/2024 1:00 PM POSTAL SUPERVISOR Temperature 36.7 C (98.1 F) 05/13/2024 11:28 AM POSTAL SUPERVISOR Respiratory Rate 16 05/13/2024 1:00 PM POSTAL SUPERVISOR Oxygen Saturation 96% 05/13/2024 1:00 PM POSTAL SUPERVISOR Inhaled Oxygen Concentration - - Weight 95.3 kg (210 lb) 05/13/2024 11:28 AM POSTAL SUPERVISOR Height 170.2 cm (5' 7) 05/01/2024 5:13 PM POSTAL SUPERVISOR Body Mass Index 32.89 05/01/2024 5:13 PM POSTAL SUPERVISOR Plan of Treatment Not on file Medical Devices Implanted Type Area Etl Tester Device Identifier Shelf Expiration Date Model / Serial / Lot Medtronic Neuro 3889-28 Interstim 28cm Quadripolar Lead Neurostimulator - [id number] Implanted:Qty: 1 on 11/19/2019 by Ladi Duarte MD at [facility] Neurostimulator N/A: Back Medtronic Inc 05/12/2023 3 889-28 / / [id number] Medtronic Neuro 3058 Interstim Ii 2inx1.7in 4 Electrode Aviation Technician Sacral Nerve - [id number] - [id number] Implanted:Qty: 1 on 12/03/2019 by Ladi Duarte MD at [facility] Neurostimulator N/A: Buttocks Medtronic Inc 12/27/2020 3058 / [id number] 12H / Procedures Procedure Name Priority Date/Time [...] non-imaging. 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
[2024-12-13 18:45] VITALS: BP 146/78; PULSE 81; RESP 16; TEMP 36.3; O2SAT 100
--- OUTSIDE RECORDS SUMMARY | 2024-12-13 19:07 | XMS_ITS | Referral Summary ---
Author Organization [facility] Address [address] [place] [address] Care Team Providers Care Silvering Department Supervisor Name Role Phone Galindo Valentin MD Primary Care Provider [phone] Encounters Date Type Department Care Team Description 10/29/2024 2:20 PM CDT Office Visit [facility] Urology [address] [facility] Medical Office Building [address] [place] [address] Carlo Solano NP Benign prostatic [...] every morning Active warfarin (COUMADIN) 5 mg tabletIndications:[facility] 2019 stroke Take 1 tablet (5 mg total) by mouth daily Restart tonight 12/04/2019 1 Active Active Problems Problem Noted Date Diagnosed Date Preoperative testing 10/01/2020 Benign prostatic hyperplasia with lower urinary tract symptoms 09/03/2020 Overview (09/03/2020): Added automatically from request for surgery [id number] Urinary retention 11/07/2019 Overview (11/07/2019): Added automatically from request for surgery [id number] Retention of urine 11/07/2019 Overview (11/07/2019): Added automatically from request for surgery [id number] Social History Tobacco Use Types Packs/Day Years [...] on file Legal Sex Male 5:37 PM RACING SECRETARY Gender Identity Male 04/21/2022 3:16 PM RACING SECRETARY Sexual Orientation Straight 08/31/2019 2: 14 PM CDT Last Filed Vital Signs Vital Sign Reading Time Taken Comments Blood Pressure 118/67 05/13/2024 1:00 PM RACING SECRETARY Pulse 65 05/13/2024 1:00 PM RACING SECRETARY Temperature 36.7 C (98.1 F) 05/13/2024 11:28 AM RACING SECRETARY Respiratory Rate 16 05/13/2024 1:00 PM RACING SECRETARY Oxygen Saturation 96% 05/13/2024 1:00 PM RACING SECRETARY Inhaled Oxygen Concentration - - Weight 95.3 kg (210 lb) 05/13/2024 11:28 AM RACING SECRETARY Height 170.2 cm (5' 7) 05/01/2024 5:13 PM RACING SECRETARY Body Mass Index 32.89 05/01/2024 5:13 PM RACING SECRETARY Plan of Treatment Not on file Medical Devices Implanted Type Area Call Person Device Identifier Shelf Expiration Date Model / Serial / Lot Medtronic Neuro 3889-28 Interstim 28cm Quadripolar Lead Neurostimulator - [id number] Implanted:Qty: 1 on 11/19/2019 by Ladi Duarte MD at [facility] Neurostimulator N/A: Back Medtronic Inc 05/12/2023 3 889-28 / / [id number] Medtronic Neuro 3058 Interstim Ii 2inx1.7in 4 Electrode Butcher Meat Sacral Nerve - [id number] - [id number] Implanted:Qty: 1 on 12/03/2019 by Ladi Duarte MD at [facility] Neurostimulator N/A: Buttocks Medtronic Inc 12/27/2020 3058 / [id number] 12H / Procedures Procedure Name Priority Date/Time [...] non-imaging. 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
--- OUTSIDE RECORDS SUMMARY | 2024-12-13 19:07 | XMS_ITS | Encounter Summary ---
Author Organization [facility] Address [address] [place] [address] Care Team Providers Care Research Animal Facility Supervisor Name Role Phone Galindo Valentin MD Primary Care Provider [phone] Reason for Visit * Reason Onset Date Comments afib rvr 08/09/2019 Sent page in Spo k to [facility] for Cody's exchange Encounter Details Date Type Department Care Team (Late Contact Info) Description 08/09/2019 Telephone [facility] [address] [place] [address] [place] [address] [address] [facility] [address] [place] [address] afib rvr (Sent page in Spok to [facility] for [employer] Revel Body) Social History Tobacco Use Types Packs/Day Years [...] Description 11/29/2025 10:30 AM CDT Office Visit [facility] Heart and Vascular - [address] [facility] [address] [facility] [address] [place] [address] Letty Macario, PMP CERTIFIED PROJECT MANAGER-CHICKEN HANGER [address] [facility] [address] [place] [address] documented as of this encounter Visit Diagnoses Not on filedocumented in this encounter Care Teams Research Animal Facility Supervisor Relationship Specialty Start Date End Date Galindo Valentin MD [address] [facility] [address] [place] [address] PCP - General Internal Medicine 08/08/19 documented as of this encounter
--- OUTSIDE RECORDS SUMMARY | 2024-12-13 19:07 | XMS_ITS | Clinical Summary ---
Author Organization [facility] Address [address] [place] [address] Care Team Providers Care Manager Print Name Role Phone Galindo Valentin MD Primary Care Provider [phone] Allergies Active Allergy Reactions Criticality Noted Date [...] every morning Active warfarin (COUMADIN) 5 mg tabletIndications:[facility] 2019 stroke Take 1 tablet (5 mg total) by mouth daily Restart tonight 12/04/2019 1 Active Active Problems Problem Noted Date Diagnosed Date Preoperative testing 10/01/2020 Benign prostatic hyperplasia with lower urinary tract symptoms 09/03/2020 Overview (09/03/2020): Added automatically from request for surgery [id number] Urinary retention 11/07/2019 Overview (11/07/2019): Added automatically from request for surgery [id number] Retention of urine 11/07/2019 Overview (11/07/2019): Added automatically from request for surgery [id number] Encounters Date Type Department Care Team Description 10/29/2024 2:20 PM CDT Office Visit [facility] Urology [address] [facility] Medical Office Building [address] [place] [address] Carlo Solano, MADHU Benign prostatic hyperplasia with incomplete bladder emptying (Primary Dx); Incomplete bladder emptying from Last 3 Months Surgical History Surgery Date Site/Laterality Comments FOOT SURGERY LIPOMA RESECTION OTHER SURGICAL HISTORY 11/19/2019 urinary interstim for retention- [facility] Medical History Medical History Date Comments Diabetes [...] on file Legal Sex Male 5:37 PM INTERNAL CONTROLS CONSULTANT Gender Identity Male 04/21/2022 3:16 PM INTERNAL CONTROLS CONSULTANT Sexual Orientation Straight 08/31/2019 2: 14 PM CDT Obstetrics History Last Filed Vital Signs Vital Sign Reading Time Taken Comments Blood Pressure 118/67 05/13/2024 1:00 PM INTERNAL CONTROLS CONSULTANT Pulse 65 05/13/2024 1:00 PM INTERNAL CONTROLS CONSULTANT Temperature 36.7 C (98.1 F) 05/13/2024 11:28 AM INTERNAL CONTROLS CONSULTANT Respiratory Rate 16 05/13/2024 1:00 PM INTERNAL CONTROLS CONSULTANT Oxygen Saturation 96% 05/13/2024 1:00 PM INTERNAL CONTROLS CONSULTANT Inhaled Oxygen Concentration - - Weight 95.3 kg (210 lb) 05/13/2024 11:28 AM INTERNAL CONTROLS CONSULTANT Height 170.2 cm (5' 7) 05/01/2024 5:13 PM INTERNAL CONTROLS CONSULTANT Body Mass Index 32.89 05/01/2024 5:13 PM INTERNAL CONTROLS CONSULTANT Plan of Treatment Health Maintenance Due Date [...] 02/19/2020, 11/15 Medical Devices Implanted Type Area Coil Winder Repair Device Identifier Shelf Expiration Date Model / Serial / Lot Medtronic Neuro 3889-28 Interstim 28cm Quadripolar Lead Neurostimulator - [id number] Implanted:Qty: 1 on 11/19/2019 by Ladi Duarte MD at [facility] Neurostimulator N/A: Back Med[employer]onic Inc 05/12/2023 3 889-28 / / [id number] Medtronic Neuro 3058 Interstim Ii 2inx1.7in 4 Electrode Cementer Oil Well Sacral Nerve - [id number] - [id number] Implanted:Qty: 1 on 12/03/2019 by Ladi Duarte MD at [facility] Neurostimulator N/A: Buttocks Med[employer]onic Inc 12/27/2020 3058 / [id number] 12H / Procedures Procedure Name Priority Date/Time [...] neg/ESBL 10/23/2020 11/11/2020 Insurance MEDICARE [employer] [place] [employer]ICARE [employer] [place] MEDICARE [facility] [facility] Advance Directives For more information, please contact: [phone] * Full Code (Latest Code Status on File) Date Activated Date Inactivated Comments 10/01/2020 10:52 AM 10/03/2020 2:55 PM * Full Code Date Activated Date Inactivated Comments 12/03/2019 3:07 PM 12/04/2019 3:43 PM Care Teams Manager Print Relationship Specialty Start Date End Date Galindo Valentin MD PCP - General Internal Medicine 08/28/19
--- OUTSIDE RECORDS SUMMARY | 2024-12-13 19:08 | XMS_ITS | Encounter Summary ---
Author Organization [facility] Address [address] [place] [address] Care Team Providers Care Lumber Salvager Name Role Phone Galindo Valentin MD Primary Care Provider [phone] Encounter Details Date Type Department Care Team (Late Contact Info) Description 09/14/2019 Telephone [facility] [address] [place] [address] [place] [address] [address] Social History Tobacco Use Types [...] Description 11/29/2025 10:30 AM CDT Office Visit [facility] Heart and Vascular - [address] [facility] [address] [address] [facility] [address] [place] [address] Letty Macario, ACADEMIC ADVISER-SALES AND SUPPORT CENTER AGENT [address] [facility] [address] [place] [address] documented as of this encounter Visit Diagnoses Not on filedocumented in this encounter Care Teams Lumber Salvager Relationship Specialty Start Date End Date Galindo Valentin MD [address] [facility] [address] [place] [address] PCP - General Internal Medicine 08/08/19 documented as of this encounter
--- OUTSIDE RECORDS SUMMARY | 2024-12-13 19:08 | XMS_ITS | Clinical Summary ---
Author Organization [facility] Address [address] [place] [address] Phone Care Team Providers Care Computer Systems Security Administrator Name Role Phone Galindo Valentin MD Primary Care Provider [phone] Allergies Active Allergy Reactions Criticality Noted Date [...] migh t be different from the original. Passementerie Worker-Dr You [facility] Heart [facility] Vascular 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 [...] Abstract 11/27/2024 11:15 AM CDT Office Visit [facility] Heart and Vascular - [address] [facility] [address] [place] [address] Froylan You MD Paroxysmal atrial fibrillation (CMS/HCC) [...] 36.4 C (97.6 F) 06/03/2022 9:13 AM METAL SPONGE MAKING MACHINE OPERATOR Respiratory Rate 16 06/03/2022 1:30 PM METAL SPONGE MAKING MACHINE OPERATOR Oxygen Saturation 97% 01/21/2023 1:42 PM CDT Inhaled Oxygen Concentration - - Weight 94.3 kg (208 lb) 11/27/2024 11:14 AM CDT Height 170.2 cm (5' 7) 11/27/2024 11:14 AM CDT Body Mass Index 32.58 11/27/2024 11:14 AM CDT Plan of Treatment Upcoming Encounters Date Type Department Care Team (Late st Contact Info) Description 11/29/2025 10:30 AM CDT Office Visit [facility] Heart and Vascular - [address] [facility] [address] [address] [place] [address] Letty Macario APRN-RAMONITA [address] [place] [address] Health Maintenance Due Date Last [...] Procedure Name Priority Date/Time Associated Diagnosis Comments NV ECG ROUTINE ECG W/LEAST 12 LDS W/I&R Routine 11/27/2024 11:15 AM CDT Paroxysmal atrial fibrillation (CMS/HCC) LIPID PANEL Routine 06/08/2022 HEMOGLOBIN A1C Routine 08/09/2019 6:30 AM CDT from Last 3 Months or Most Recently Relevant to Health Maintenance Results * NV ECG ROUTINE ECG W/LEAST 12 LDS W/I&R (11/27/2024 11:15 AM CDT) Narrative [facility]ULAR [id number] [address] - 11/27/2024 11:15 AM CDT Froylan You MD 11/27/2024 11:41 AM EKG Date/Time: 11/27/2024 11:15 AM Performed by: Froylan You MD Authorized by: Froylan You MD Rhythm: sinus rhythm Clinical impression: normal ECG Procedure Note Froylan You MD - 11/27/2024 11:36 AM CDT Return Office Visit 11:36 AM 11/27/2024 Juancarlos Antunez 1955 [id number] Primary Care Physician: Galindo Valentin MD Chief [...] injection 2 times daily. (Patient taking differently: [id number] Units by subcutaneous injection daily with breakfast.) [...] warfarin. Monitorclinically for recurrence,. Froylan You MD [facility] Heart and Vascular Froylan You MD ECG ORDERABLES Edite d Result - Final [facility] [id number] [facility] CLIA# [id number] [address] [address] * LIPID PANEL (06/08/2022) Blood Abstract Provider CHEMISTRY ORDERABLES Edited Re sult - Final * (ABNORMAL) HEMOGLOBIN A1C (08/09/2019 6:30 AM CDT) HEMOGLOBIN A1C 10.6(H) <=5.6 % 08/09/2019 7:09 AM CDT [facility] EST. AVG GLUCOSE, A1C 258 mg/dL 08/09/2019 7:09 AM CDT [facility] Blood Venipuncture / Unknown 08/09/2019 6:30 AM CDT 08/09/2019 6:54 AM CDT Narrative [facility] - 08/09/2019 7:09 AM CDT HGB A1C INTERPRETATION NORMAL: <5.7% PRE-DIABETES: 5.7 - 6.4% DIABETES: 6.5% OR GREATER April Gandara MD CHEMISTRY ORDERABLES Final Resul t [facility] CLIA# [id number] [place] [address] from Last 3 Months or Most Recently Relevant to Health Maintenance Insurance MEDICARE PART A AND B [facility] RX Syndevrx Medicare Part D RX [employer] (INTERNAL) [facility] Plans Advance Directives For more information, please contact: [phone] * Full Code (Latest Code Status on [...] 8:30 PM 08/08/2019 10:37 PM Care Teams Computer Systems Security Administrator Relationship Specialty Start Date End Date Galindo Valentin MD [address] [phone] PCP - General Internal Medicine 08/08/19
--- OUTSIDE RECORDS SUMMARY | 2024-12-13 19:08 | XMS_ITS | Encounter Summary ---
Author Organization [facility] Address [address] [place] [address] Care Team Providers Care Stitch Bonding Machine Tender Helper Name Role Phone Galindo Valentin MD Primary Care Provider [phone] Reason for Visit * Reason Onset Date Comments Abscess of Left Foot 09/14/2019 Spoke with Breanna at Dr. Silva's office Encounter Details Date Type Department Care Team ([facility] Contact Info) Description 09/14/2019 Telephone [facility] [address] [place] [address] [place] [address] [address] Abscess of Left Foot (Spoke [...] Upcoming Encounters Date Type Department Care Team ([facility] Contact Info) Description 11/29/2025 10:30 AM CDT Office Visit [facility] Heart and Vascular - [address] [facility] 300 [address] [facility] [address] [place] [address] Letty Macario, MARISELA-BRASS CHASER [address] [facility] [address] [place] [address] documented as of this encounter Visit Diagnoses Not on filedocumented in this encounter Care Teams Stitch Bonding Machine Tender Helper Relationship Specialty Start Date End Date Galindo Valentin MD [address] [facility] [address] [place] [phone] PCP - General Internal Medicine 08/08/19 documented as of this encounter
--- OUTSIDE RECORDS SUMMARY | 2024-12-13 19:08 | XMS_ITS | Continuity of Care Document ---
Author Organization [facility] Address [address] [place] [address] [address] [place] [address] Phone Care Team Providers Care Establishment Guide Name Role Phone [facility] Unavailable Unavail able Trudi Umana Unavailable Unavailable Procedures Procedure Date Vision Svcs Frames Purchases Progressive Lens, Polycarb Tax - Medical Anti-reflective Coating Eye Exam & Treatment Refraction Advance Directives Directive Yes / No Effective Date File Name No Information Encounters Encounter Description Practice Location Reason(s) For Visit Diagnoses Date Provider Providers Copied on Encounter Formerly [facility], [address] [place] [address] [address], [place], [place], [id number], [place] tel:[phone] [facility] No Information 8 [facility] . [address] [facility], [facility] [address], [place], [id number], [place]. tel:[phone] Referring Provider: Renata Monge, Formerly [facility] [address], [place], [address]. tel:[phone] g Provider: Trudi Umana, [address] [facility], [place], [address]. tel:[phone] Formerly [facility], [address], [place], [place], [id number], [place] tel:[phone] [facility] No Information 8 May Yanez. Formerly [facility], [facility] , [address], [place], [address], [place]. tel:[phone] Family History Family Member Type Diagnosis Age At Onset No Information Payers Payer name Insurance type Covered alliance party ID Authoriza tion(s) No Information Social History [...]
--- OUTSIDE RECORDS SUMMARY | 2024-12-13 19:08 | XMS_ITS | Encounter Summary ---
Author Organization [facility] Address [address] [place] [address] Care Team Providers Care Car Head Liner Installer Name Role Phone Galindo Valentin MD Primary Care Provider [phone] Reason for Visit * Reason Onset Date Comments Abscess Of Left Foot 09/14/2019 Left messag e on Voicemail at Dr. Au's office Encounter Details Date Type Department Care Team ([facility] Contact Info) Description 09/14/2019 Telephone [facility] [address] [place] [address] [place] [address] [facility] [address] [place] [address] Abscess Of Left Foot (Left [...] Upcoming Encounters Date Type Department Care Team ([facility] Contact Info) Description 11/29/2025 10:30 AM CDT Office Visit [facility] Heart and Vascular - [address] [facility] 300 [address] [facility] [address] [place] [address] Letty Macario APRN-BIT SHARPENER OPERATOR [address] [facility] [address] [place] [address] documented as of this encounter Visit Diagnoses Not on filedocumented in this encounter Care Teams Car Head Liner Installer Relationship Specialty Start Date End Date Galindo Valentin MD [address] [facility] [address] [place] [phone] PCP - General Internal Medicine 08/08/19 documented as of this encounter
--- NOTE | 2024-12-13 19:13 | ED_ITS ---
HPI - General Adult General Chief complaint: Burn/Smoke Inhalation Stated complaint: burn Time Seen by Provider: 12/13/24 18:55 History of Present Illness HPI narrative: This is a 69-year-old male presenting with a grease burn. He was trying on a new steak recipe and during the branding and frying process he had grease splatter on the back of his right hand. He had a second-degree burn with some sloughing of the superficial skin layer. No other injuries. He came in because he was concerned about infection. He has already cleaned the wound with soap water and dressed it appropriately. Related Data Allergies Allergy/AdvReac Type Severity Reaction Status Date / Time povidone-iodine (From AdvReac Rash Verified 12/13/24 18:43 Betadine) FORMERLY [facility], [facility] Past Medical History Medical History CVA (cerebral vascular accident) COPD (chronic obstructive pulmonary disease) Diabetes Hypertension Social History Social History Social History: denies smoking tobacco drugs Exam Narrative: APPEARANCE: No apparent distress. Head: atraumatic. EYES: EOMI, NOSE: Atraumatic NECK: Trachea midline RESPIRATORY: No increased rate of breathing, clear to auscultation CARDIOVASCULAR: RRR, no peripheral edema ABDOMINAL: Non-distended MUSCULOSKELETAl: No obvious deformities NEURO: Alert. Moving 4/4 extremities SKIN:: On the posterior aspect of his right wrist he has a 3 x 2 cm partial- thickness burn. Second-degree. PSYCHIATRIC: Normal affect Course Vital Signs Vital signs: Vital Signs Temperature 97.4 F L 12/13/24 18:45 Pulse Rate 81 12/13/24 18:45 Respiratory Rate 16 12/13/24 18:45 Blood Pressure 146/78 H 12/13/24 18:45 Pulse Oximetry 100 12/13/24 18:45 Temperature 97.4 F L 12/13/24 18:45 Pulse Rate 81 12/13/24 18:45 Respiratory Rate 16 12/13/24 18:45 Blood Pressure 146/78 H 12/13/24 18:45 Pulse Oximetry 100 12/13/24 18:45 Medical Decision Making [facility] Narrative Medical decision making narrative: -Course: 69-year-old male presenting with a minor burn to the back of his wrist. Patient educated on wound care and when to return with signs of infection. Tdap was updated. Discharged primary care follow-up. Vital Signs Vital Signs: Vital Signs Temperature 97.4 F L 12/13/24 18:45 Pulse Rate 81 12/13/24 18:45 Respiratory Rate 16 12/13/24 18:45 Blood Pressure 146/78 H 12/13/24 18:45 Pulse Oximetry 100 12/13/24 18:45 Temperature 97.4 F L 12/13/24 18:45 Pulse Rate 81 12/13/24 18:45 Respiratory Rate 16 12/13/24 18:45 Blood Pressure 146/78 H 12/13/24 18:45 Pulse Oximetry 100 12/13/24 18:45 Discharge Plan Discharge Clinical Impression: Burn Patient Disposition: Home Condition: Stable Instructions: Antibiotic Form, Superficial Burn (DC) Additional Instructions: You were seen in the ED for a superficial burn. Please keep it clean/dry with clean bandages. If you develop signs of infection please return to ED re- evaluation. Please follow-up your primary care physician in 3-5 days. Patient Language: Indonesian Follow-up/Referrals: UNKNOWN,DOCTOR [Primary Care Provider] -
[2024-12-13] MEDS: TETANUS,DIPHTHERIA,AC PERTUSSIS ADULT (0.5 ML) BOOSTRIX IM (19:26)
[2024-12-13 19:32] VITALS: BP 133/77; PULSE 76; RESP 20; TEMP 36.6; O2SAT 98
== END 2024-12-13 19:38 | disposition home or self-care (01) ==
PROVIDERS: Emergency Provider Emergency Medicine
DX: T23.261A Burn of second degree of back of right hand, initial encounter (principal); Z23 Encounter for immunization; I10 Essential (primary) hypertension; J44.9 Chronic obstructive pulmonary disease, unspecified; E11.9 Type 2 diabetes mellitus without complications; Z86.73 Personal history of transient ischemic attack (TIA), and cerebral infarction without residual deficits; X10.2XXA Contact with fats and cooking oils, initial encounter; Y93.G3 Activity, cooking and baking; T31.0 Burns involving less than 10% of body surface
CPT/HCPCS: 90471; 90715; 99282